=== PATIENT | male | born 1970 | race Caucasian/White ===

== ENCOUNTER 2017-05-27 20:19 | Inpatient (IN) ==
[2017-05-27] MEDS ORDERED: KETOROLAC 30 MG/1 ML VIAL IV STA (21:31)
[2017-05-27] MEDS ORDERED: PANTOPRAZOLE 40 MG VIAL IV STA (21:31)
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
[2017-05-27] MEDS ORDERED: PANTOPRAZOLE 40 MG VIAL IV ONE (21:43)
[2017-05-27] MEDS ORDERED: KETOROLAC 30 MG/1 ML VIAL ONE (21:43)
[2017-05-27 22:03] LABS: Basophils % 0.2 % (0.0-0.8); Hematocrit 41.7 VOL% (42.0-52.0); Hemoglobin 14.7 GM/DL (14.0-18.0); Immature Granulocytes % 0.4 %; Immature Granulocytes Absolute 0.05 #; Lymphocytes # 1.7 10*3/uL (1.4-4.0); Lymphocytes % 13.9 % (21.2-54.2); Mean Corpuscular HGB Conc 35.3 GM/DL (32-36); Mean Corpuscular Hemoglobin 32 PG (27-34); Mean Corpuscular Volume 90.7 FL (87-102); Mean Platelet Volume 8.6 FL (9.6-12.0); Monocytes # 1.1 10*3/uL (0.11-0.8); Monocytes % 9.5 % (1.7-12.7); Neutrophils # 9.2 10*3/uL (1.4-7.4); Platelet Count 308 T/CUMM (130-400); Red Cell Distribution Width 12.7 % (9.3-17.3)
[2017-05-27 22:21] LABS: Albumin 4.1 G/DL (3.4-5.0); Bilirubin,Total 1.4 MG/DL (0.2-1.0); Calcium 8.5 MG/DL (8.5-10.1); Osmolality,Calculated 267.4 MOS/KG (273-304); Total Protein 7.3 G/DL (6.4-8.3)
[2017-05-27] MEDS ORDERED: PROMETHAZINE 25 MG/1 ML VIAL IM PRN (23:34)
[2017-05-27] MEDS ORDERED: PROMETHAZINE 25 MG TABLET PO PRN (23:34)
[2017-05-27] MEDS ORDERED: DOCUSATE SODIUM 100 MG CAPSULE PO PRN (23:34)
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
[2017-05-28] MEDS: ONDANSETRON 4 MG/2 ML VIAL IV PRN ×3 (00:40→20:43)
[2017-05-28] MEDS: SODIUM CHLORIDE 0.9% 1,000 ML IV SCH ×3 (00:42→19:07)
[2017-05-28] MEDS: HYDROmorphone 2 MG/1 ML VIAL IV PRN ×6 (00:43→20:45)
[2017-05-28] MEDS: ENOXAPARIN 40 MG/0.4 ML SYRINGE SUBCUT SCH (00:44)
[2017-05-28 01:51] LABS: Risk Ratio 5.83; VLDL CHOLESTEROL 31.8 MG/DL
[2017-05-28] MEDS: AMITRIPTYLINE 100 MG TABLET PO SCH ×2 (03:26→20:43)
[2017-05-28 05:56] LABS: Basophils % 0.2 % (0.0-0.8); Eosinophils # 0.1 10*3/uL (0.0-0.87); Eosinophils % 0.8 % (0.00-10.9); Hematocrit 40.9 VOL% (42.0-52.0); Hemoglobin 14.2 GM/DL (14.0-18.0); Immature Granulocytes % 0.3 %; Immature Granulocytes Absolute 0.03 #; Lymphocytes % 20.6 % (21.2-54.2); Mean Corpuscular HGB Conc 34.7 GM/DL (32-36); Mean Corpuscular Hemoglobin 32 PG (27-34); Mean Corpuscular Volume 91.1 FL (87-102); Monocytes # 1.1 10*3/uL (0.11-0.8); Monocytes % 11.1 % (1.7-12.7); Neutrophils # 6.4 10*3/uL (1.4-7.4); Platelet Count 308 T/CUMM (130-400); Red Blood Count 4.49 MC/CUMM (3.8-5.5); Red Cell Distribution Width 12.8 % (9.3-17.3); White Blood Count 9.6 T/CUMM (4-12)
[2017-05-28 06:33] LABS: Albumin 3.8 G/DL (3.4-5.0); Calcium 8.6 MG/DL (8.5-10.1); Osmolality,Calculated 275.7 MOS/KG (273-304); Total Protein 6.8 G/DL (6.4-8.3)
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
[2017-05-28] MEDS: ATORVASTATIN 20 MG TABLET PO SCH (09:00)
[2017-05-28] MEDS: ALPRAZolam 0.5 MG TABLET PO SCH ×3 (09:00→20:43)
[2017-05-28] MEDS ORDERED: AMPHETAMINE PO SCH (09:00)
[2017-05-28] MEDS: ESCITALOPRAM 10 MG TABLET PO SCH (09:00)
[2017-05-28] MEDS ORDERED: DEXTROAMPHETAMINE PO SCH (09:00)
[2017-05-28] MEDS: PANTOPRAZOLE 40 MG VIAL IV SCH ×2 (09:49→20:44)
--- NOTE | 2017-05-28 10:16 | Ultrasound Report ---
US abdomen Indication: Abdominal pain. ULTRASOUND ABDOMEN, COMPLETE Comparison: 07/10/2007 Findings: Liver: Unremarkable Gallbladder: Surgically absent Common bile duct: 12 mm Aorta: No aneurysm IVC: Patent Spleen: Unremarkable Pancreas: Obscured by bowel gas Right kidney: 11.2 cm length. No mass, cyst, calcification or obstruction Left kidney: 12.1 cm length. No mass, cyst, calcification or obstruction Impression: Status post cholecystectomy. 12 mm common bile duct is dilated. No choledocholithiasis seen. Consider ERCP if obstructive pathology suggested with laboratory studies. PROCEDURE INTERPRETED AT [facility] DEPARTMENT OF RADIOLOGY Final Report Signed by: Abhay Guallpa M.D.
[2017-05-28 10:24] LABS: % Iron Saturation 49.7 % (18-50)
[2017-05-28] MEDS ORDERED: LORazepam 2 MG/1 ML VIAL ONE (10:25)
[2017-05-28] MEDS ORDERED: LORazepam 2 MG/1 ML VIAL IV ONE (10:28)
[2017-05-28] MEDS ORDERED: ZIPRASIDONE 20 MG/1 ML VIAL IM ONE (10:58)
[2017-05-28] MEDS ORDERED: HALOPERIDOL 5 MG/ML AMP IV PRN (11:04)
--- NOTE | 2017-05-28 11:15 | Hospitalist Progress Note ---
Assessment and Plan (1) Agitation Status: Acute Assessment and plan: Patient has an underlying psych issues. We will try some sedatives, psychotics and try and see if any psych facility can take him. Continue with F[facility] prn Current Visit: Yes (2) Pancreatitis, acute Status: Acute Assessment and plan: Lipase level has improved from 1414 to 400.Abd USS showed Status post cholecystectomy. 12 mm common bile duct is dilated. No choledocholithiasis seen. Plan Continue with IVF, IV pain meds and antiemetics. Follow GI's recommendations Current Visit: Yes Qualifiers: Pancreatitis type: unspecified pancreatitis type (3) Depression Status: Chronic Assessment and plan: continue home meds Current Visit: Yes (4) PTSD (post-traumatic stress disorder) Status: Chronic Current Visit: Yes (5) Nausea & vomiting Status: Acute Assessment and plan: Continue with IV fluids and IV antiemetics PRN. Current Visit: Yes Hospitalist: Subjective Interval history: Patient was crying and yelling like a baby this am. He was retching and trying to induce vomiting, at some point, he laid on the floor in a position stating he had pain in his abdomen barely few minutes after receiving zofran and morphine. came over and states patient sees a pyschiatrist in [place] and that his next appointment was on Tuesday. His also states that he gets himself worked up and starts to cry. His lipase has reduced greatly from 1414 to 400. GI has seen and they recmmended an USS which showed Status post cholecystectomy. 12 mm common bile duct is dilated. No choledocholithiasis seen. Exam - Constitutional Vitals: Period Temp Pulse Resp BP Sys/Molina Pulse Ox Last 24 Hr 97.2 F-97.4 F 68-85 18-20 111-144/76-112 93-100 General appearance: no acute distress, other (yelling and crying) - Head Head exam: Present: normal inspection - Respiratory Respiratory exam: Present: clear to auscultation bilaterally - Cardiovascular Cardiovascular exam: Present: regular rate and rhythm - GI/Abdominal GI/Abdominal exam: Present: normal bowel sounds - Extremities Exam Extremities exam: Present: normal inspection - Neurological Exam Neurological exam: Present: alert, oriented X3 Results - Labs CBC & BMP: 05/28/17 05:13 05/28/17 05:13 Lab Results: I have reviewed the past 24 hour labs Quality Measures - Stroke Symptom Onset Unknown: No
[2017-05-28 11:20] LABS: Hepatitis A Ab IgM Quant 0.46 Index; Hepatitis A Ab IgM Result Negative (Negative); Hepatitis B Core IgM Quant 0.05 Index; Hepatitis B Core IgM Result Negative (Negative); Hepatitis B Surface Ag Quant < 0.10 Index; Hepatitis B Surface Ag Result Negative (Negative); Hepatitis C Virus Ab Quant 0.03 Index; Hepatitis C Virus Ab Result Negative (Negative)
[2017-05-28] MEDS ORDERED: PROMETHAZINE 25 MG/1 ML VIAL IM PRN (11:22)
--- NOTE | 2017-05-28 12:16 | XRay Report ---
XR shoulder 2V RT Indication: Right shoulder pain. Right shoulder 2 views: No fracture or dislocation identified. Soft tissues are unremarkable. Small subchondral cyst of the humeral head noted. Impression: Negative shoulder, except for a small subchondral cyst of humeral head indicating early arthritic change. PROCEDURE INTERPRETED AT [facility] DEPARTMENT OF RADIOLOGY Final Report Signed by: Abhay Guallpa M.D.
[2017-05-28] MEDS ORDERED: ENOXAPARIN 40 MG/0.4 ML SYRINGE SUBCUT SCH (13:00)
[2017-05-29] MEDS: ENOXAPARIN 40 MG/0.4 ML SYRINGE SUBCUT SCH (01:11)
[2017-05-29] MEDS: HYDROmorphone 2 MG/1 ML VIAL IV PRN ×2 (04:43→09:08)
[2017-05-29] MEDS: SODIUM CHLORIDE 0.9% 1,000 ML IV SCH ×2 (04:44→09:09)
[2017-05-29 05:43] LABS: Basophils % 0.3 % (0.0-0.8); Eosinophils # 0.1 10*3/uL (0.0-0.87); Eosinophils % 1.3 % (0.00-10.9); Hematocrit 37.4 VOL% (42.0-52.0); Hemoglobin 12.8 GM/DL (14.0-18.0); Immature Granulocytes % 0.3 %; Immature Granulocytes Absolute 0.02 #; Lymphocytes # 1.5 10*3/uL (1.4-4.0); Lymphocytes % 21.1 % (21.2-54.2); Mean Corpuscular HGB Conc 34.2 GM/DL (32-36); Mean Corpuscular Hemoglobin 31 PG (27-34); Mean Corpuscular Volume 91.9 FL (87-102); Monocytes # 0.6 10*3/uL (0.11-0.8); Monocytes % 8.7 % (1.7-12.7); Neutrophils # 4.9 10*3/uL (1.4-7.4); Neutrophils % 68.3 % (38.7-73.9); Platelet Count 282 T/CUMM (130-400); Red Blood Count 4.07 MC/CUMM (3.8-5.5); Red Cell Distribution Width 12.4 % (9.3-17.3); White Blood Count 7.1 T/CUMM (4-12)
[2017-05-29 06:16] LABS: Albumin 3.4 G/DL (3.4-5.0); Bilirubin,Direct 0.2 MG/DL (0.0-0.20); Bilirubin,Indirect 1.3 MG/DL (0.0-1.0); Bilirubin,Total 1.5 MG/DL (0.2-1.0)
[2017-05-29 06:24] LABS: Albumin 3.4 G/DL (3.4-5.0); Bilirubin,Total 1.3 MG/DL (0.2-1.0); Calcium 8.1 MG/DL (8.5-10.1); Osmolality,Calculated 277.4 MOS/KG (273-304); Potassium 3.9 MMOL/L (3.5-5.1)
--- NOTE | 2017-05-29 06:40 | Gastrointestinal Progress Note ---
Assessment and Plan (1) Pancreatitis, acute Status: Acute Assessment and plan: The patient does have some pancreatitis which has now biochemically reversed itself almost into the normal range. He is gotten regular amounts of fluid instead of high fluid bolus but feels better at this point so I am not going to increase his IV rate. His pain previously was 8 out of 10 and now has gone down to a 0 out of 10. We will cut back on his Dilaudid. I think it is a good idea to get the ultrasound. I am not sure what caused the pancreatitis but possibilities include surreptitious use of alcohol which may have worn off prior to the urine drug screen being done, drug-induced from the opiates, microlithiasis left over in the common bile duct post ERCP bilirubin stones that may have "colonized" the patent common bile duct, versus sphincter of Oddi dysfunction. I am not sure it makes much of a difference since his symptoms are improved. The ultrasound should show if there is ductal dilatation which would not be surprising post cholecystectomy to a degree. If there is wide dilation and the patient develops a second episode, ERCP versus MRCP may be indicated in order to cut the duct and dredge it which would eliminate retained common bile duct stones and sphincter of Oddi dysfunction. I do not do ERCP and so this would be a service provided by different tool maker bench. Will await ultrasound and get another lipase level tomorrow if these are both normal he could certainly be discharged in my opinion. 05/29/17-- White blood cell count is now down to 7.1, with a total bilirubin 1.3 indirect is 1.3 indicating that this is probably a Gilbert's syndrome. Patient's AST is now down to 55 with an ALT of 92 and negative viral parameters hepatitis parameters. I do not believe this was stone disease despite the dilated common bile duct which is common postcholecystectomy. He is likely a surreptitious drinker who developed some pancreatitis. When the patient returns to clinic next time the hospital with his next pancreatitis we need to check alcohol in addition to urine drug screen. If he remains dilated at that time he may need a MRCP versus ERCP as well. Please recall I do not do ERCP. he is safe for release at this time on a low-fat diet. We will advance his diet this morning thank you for this most interesting case, I will be signing off at this time Current Visit: Yes Qualifiers: Pancreatitis type: unspecified pancreatitis type (2) Nausea & vomiting Status: Acute Assessment and plan: Patient states that he has reflux and occasional epigastric pain with black stools although I am not seeing any blood in his stools. It is advisable to keep the patient on proton pump inhibition while he is here and he might benefit from a prescription for Protonix upon leaving the hospital. His hematocrit remains normal. 05/29/17--apparently there was some hub-gato with the patient last night, but he seems fine now. He can be released to home at this time. I will write for him to have a follow-up appointment in 6 weeks. Current Visit: Yes (3) Abnormal liver function tests Status: Acute Assessment and plan: The differential on the use is wide and include: Biliary obstruction, drug- induced liver injury, alcoholism, viral hepatitis, hemochromatosis/alpha-1 antitrypsin deficiency/autoimmune hepatitis (which we will not be excluding yet) , and Gilbert's syndrome specifically for the bilirubin elevation. Ultrasound is pending, and we are following these liver function tests over time. They appear to be improving already. His primary care provider will need to follow these over time to see if they normalize, there is not much to do about the medications he is taking for his psychiatric illness that might be damaging his liver. Ultimately he might benefit from a liver biopsy to distinguish etiologies. 05/29/17--patient has a slightly dilated common bile duct which may be secondary to passed stones versus left over from his cholecystectomy, LFTs are decreasing slowly and his lipase level is completely normal now. He he can be discharged at this time. Current Visit: Yes Gastroenterology - PN: Subj Interval history: Patient is interactive this morning and calm told me that his pain was down to a 1 out of 10 in intensity and that he is hungry for something more solid. Will advance his diet to a low-fat diet and he can certainly be discharged today. His numbers look essentially back to normal again and his ultrasound shows no ductal obstruction a 12 mm common bile duct but since his LFTs continue to improve, with a lipase level that is in the normal range now. Exam (Progress Note) - Constitutional Vitals: Period Temp Pulse Resp BP Sys/Molina Pulse Ox Last 24 Hr 97.5 F-98.5 F 59-93 16-20 123-142/75-93 92-96 General appearance: no acute distress - Eye Eye exam: Present: EOMI Pupils: Present: BEATRICE - Respiratory Respiratory exam: Present: clear to auscultation bilaterally - Cardiovascular Cardiovascular exam: Present: regular rate and rhythm - GI/Abdominal GI/Abdominal exam: Present: normal bowel sounds, soft. Absent: distended, tenderness, rebound - Back Exam Back exam: Present: normal inspection - Neurological Exam Neurological exam: Present: alert, oriented X3, CN II-XII intact - Psychiatric Psychiatric exam: Present: normal affect, normal mood - Skin Skin exam: Present: warm Results - Labs CBC & BMP: 05/29/17 05:15 05/29/17 05:15
--- NOTE | 2017-05-29 08:23 | Discharge Summary ---
<Ovidio Panchal - Last Filed: 05/29/17 08:44> Hospital Course - Hospital Course Hospital Course: Mr. Arechiga is a 47 year old male that presented to the ED on 05/27/2017, accompanied by his [id number] and daughter, with complaints of abdominal pain that started some time earlier that day with associated nausea and vomiting. The patient was transferred from [facility] where he had a CT scan that showed absent gall bladder and no significant abnormalities of the pancreas. He reported abdominal pain to be severe and located in RUQ. Patient was admitted to the hospitalist service with acute pancreatitis with supportive therapy and consultation from GI. With IVF, IC pain meds and antiemetics, the patient's lipase level did improve from 1414 on admission to 400 by day 2. Abdominal US showed s/p cholecystectomy with a 12 mm common bile duct, however no stones were present. Upon GI evaluation, it was noted that the patient's total bilirubin was 1.3 and indirect was 1.3 indicating that the patient likely has Gilbert's Syndrome. The pancreatitis effect is likely due to surreptitious alcohol consumption. In the future, the patient may need a MRCP vs ERCP. At this time he is stable for discharge home on a low-fat diet. He should follow- up with [facility] as an outpatient in 6 weeks. In addition to the patient's pancreatitis, he does have significant psychiatric issues. During his stay, patient was crying and yelling like a baby yesterday morning. He was retching and trying to induce vomiting. At some point, he laid on the floor in a position stating he had pain in his abdomen barely few minutes after receiving zofran and morphine. came over and states patient sees a pyschiatrist in [place] and that his next appointment is on Tuesday.Hephzibah saw him in consultation and advised that he follows with his psychiatrist. We want to ensure the patient does not miss this appointment. Discharge orders and appropriate instructions to follow per Dr. Alvarenga. Vitals are stable, he will be discharged today. - Time spent with patient Time with patient DS: Greater than 30 minutes Discharge Plan - Discharge Data Disposition: Disch To Home/Self Care - Discharge Medications New Ondansetron Tab [Zofran Tab] 4 mg PO Q6H #20 tablet traMADol TAB [Ultram] 50 mg PO Q4H PRN #20 tablet PRN Reason: Abdominal Pain Atorvastatin [Lipitor] 20 mg PO DAILY #30 tablet Continue Escitalopram [Lexapro] 20 mg PO DAILY Dextroamphetamine/Amphetamine [Adderall 15 mg Tablet] 15 mg PO BID ALPRAZolam [Xanax] 2 mg PO TID #20 Amitriptyline [Elavil] 200 mg PO BEDTIME #20 - Follow Up or Referral - Forms/Instructions Exam - Constitutional Vitals: Period Temp Pulse Resp BP Sys/Molina Pulse Ox Last 24 Hr 96.5 F-98.5 F 84-93 16-20 128-142/84-93 92-98 Discharge Results Labs on day of discharge: Labs from last 24 hours 05/29/17 05/29/17 05/29/17 05:15 05:15 05:15 WBC 7.1 RBC 4.07 Hgb 12.8 L Hct 37.4 L MCV 91.9 MCH 31 MCHC 34.2 RDW 12.4 Plt Count 282 MPV 9.0 L Neut % (Auto) 68.3 Lymph % (Auto) 21.1 L [place] % (Auto) 8.7 Eos % (Auto) 1.3 Baso % (Auto) 0.3 Neut # (Auto) 4.9 Lymph # (Auto) 1.5 [place] # (Auto) 0.6 Eos # (Auto) 0.1 Baso # (Auto) 0.0 Immature Gran % 0.3 Nucleated RBC % 0.0 Immature Gran # 0.02 Nucleated RBCs # 0.00 Immature Plt Fraction 0.0 Sodium 140 Potassium 3.9 Chloride 107 Carbon Dioxide 25 Anion Gap 11.9 BUN 13 Creatinine 0.90 GFR Calculation 126 BUN/Creatinine Ratio 14.00 Glucose 86 Calculated Osmolality 277.4 Calcium 8.1 L Total Bilirubin 1.30 H 1.50 H Direct Bilirubin 0.20 Indirect Bilirubin 1.3 H AST 55 H 55 H ALT 92 H 93 H Alkaline Phosphatase 110 109 Total Protein 6.0 L 6.0 L Albumin 3.4 3.4 Globulin 2.6 Albumin/Globulin Ratio 1.3 Lipase 155.0 D DS: Provider Date of admission: 05/27/17 23:34 Primary care physician: . No PCP Attending physician on admission: Christophe Nichols MD Discharging clinician: Ovidio BUI Expected date of discharge: 05/29/17 <Vicky Alvarenga - Last Filed: 05/29/17 12:22> Hospital Course - Time spent with patient Time with patient DS: Greater than 30 minutes (Time spent 35mins) Diagnosis - Discharge Diagnosis (1) Agitation Status: Acute (2) Pancreatitis, acute Status: Acute (3) Depression Status: Chronic (4) PTSD (post-traumatic stress disorder) Status: Chronic (5) Nausea & vomiting Status: Acute Discharge Plan - Discharge Data Condition at Discharge: Stable Discharge Diet: advance to your usual diet Activity: resume usual activities as tolerated - Forms/Instructions Additional Discharge Instructions: Follow with PCP in 1week, Psychiatrist in am and GI as scheduled Exam - Constitutional General appearance: no acute distress - Head Head exam: Present: normal inspection - Respiratory Respiratory exam: Present: clear to auscultation bilaterally - Cardiovascular Cardiovascular exam: Present: regular rate and rhythm - GI/Abdominal GI/Abdominal exam: Present: normal bowel sounds - Extremities Exam Extremities exam: Present: normal inspection
[2017-05-29] MEDS: ATORVASTATIN 20 MG TABLET PO SCH (09:09)
[2017-05-29] MEDS: PANTOPRAZOLE 40 MG VIAL IV SCH (09:09)
[2017-05-29] MEDS: ESCITALOPRAM 10 MG TABLET PO SCH (09:09)
[2017-05-29] MEDS: ALPRAZolam 0.5 MG TABLET PO SCH (09:09)
[2017-05-29 11:08] VITALS: BP 140/88
== END 2017-05-29 13:15 | disposition home or self-care (01) | DRG 282 ==
LOC: EDUNIT# → EDBD → N.ED 20:19 → SUATTDRO 23:34 → N.EDINP 23:34 → N.5E 05-28 00:02
PROVIDERS: ADMIT Family Medicine; ATTEND Internal Medicine

== ENCOUNTER 2017-12-25 09:43 | Observation (INO) ==
[2017-12-25] MEDS ORDERED: ONDANSETRON 4 MG/2 ML VIAL IV STA ×2 (10:03→11:02)
[2017-12-25] MEDS ORDERED: HYDROmorphone 2 MG/1 ML VIAL IV STA (10:03)
[2017-12-25] MEDS ORDERED: SODIUM CHLORIDE 0.9% 1,000 ML IV STA (10:03)
[2017-12-25] MEDS ORDERED: ONDANSETRON 4 MG/2 ML VIAL ONE ×2 (10:15→11:04)
[2017-12-25] MEDS ORDERED: MORPHINE 2 MG/1 ML SYRINGE IV STA ×2 (10:26→11:02)
[2017-12-25 10:36] LABS: Basophils % 0.3 % (0.0-0.8); Eosinophils % 0.1 % (0.00-10.9); Hematocrit 45.6 VOL% (42.0-52.0); Hemoglobin 15.8 GM/DL (14.0-18.0); Immature Granulocytes % 0.6 %; Immature Granulocytes Absolute 0.08 #; Lymphocytes # 1.9 10*3/uL (1.4-4.0); Lymphocytes % 13.8 % (21.2-54.2); Mean Corpuscular HGB Conc 34.6 GM/DL (32-36); Mean Corpuscular Hemoglobin 31 PG (27-34); Mean Corpuscular Volume 90.3 FL (87-102); Mean Platelet Volume 8.9 FL (9.6-12.0); Monocytes # 0.9 10*3/uL (0.11-0.8); Monocytes % 6.3 % (1.7-12.7); Neutrophils # 10.8 10*3/uL (1.4-7.4); Neutrophils % 78.9 % (38.7-73.9); Platelet Count 398 T/CUMM (130-400); Red Blood Count 5.05 MC/CUMM (3.8-5.5); Red Cell Distribution Width 12.7 % (9.3-17.3); White Blood Count 13.7 T/CUMM (4-12)
[2017-12-25] MEDS ORDERED: MORPHINE 2 MG/1 ML SYRINGE ONE ×3 (10:36→11:04)
[2017-12-25] MEDS ORDERED: PROMETHAZINE 25 MG/1 ML VIAL IM STA (10:50)
[2017-12-25 10:58] LABS: Alanine Aminotransferase 23 U/L (16-61); Alkaline Phosphatase 92 U/L (45-117); Aspartate Amino Transferase 27 U/L (0-37); Blood Urea Nitrogen 14 MG/DL (7-18); Calcium 9.8 MG/DL (8.5-10.1); Glucose 117 MG/DL (74-106); Lactic Acid 2.9 MMOL/L (0.4-2.0); Osmolality,Calculated 271.1 MOS/KG (273-304); Potassium 3.8 MMOL/L (3.5-5.1); Sodium 135 MMOL/L (136-145); Total Protein 8.9 G/DL (6.4-8.3)
[2017-12-25] MEDS ORDERED: PROMETHAZINE 25 MG/1 ML VIAL ONE (11:32)
[2017-12-25 12:25] LABS: Apearance,Urine CLEAR (Clear); Bilirubin,Urine Negative (Negative); Blood, Urine Negative (Negative); Glucose,Urine (UA) 50 mg/dL (Negative); Ketones,Urine 5 mg/dL (Negative); Mucus,Urine Few /LPF (Occasional); Nitrite,Urine Negative (Negative); Protein,Urine Negative; RBC,Urine 1 /HPF (0-4); Urine Color Yellow (Yellow); Urine Specific Gravity > 1.060 (1.001-1.035); Urine Urobilinogen < 2.0 EU/DL (0.2-1.0); WBC,Urine <1 /HPF (0-6)
[2017-12-25 12:31] LABS: Barbiturates Screen,Urine Negative (Negative); Benzodiazepines Screen,Urine Positive (Negative); Cannabinoid Screen,Urine Positive (Negative); Opiate Screen,Urine Positive (Negative); Phencyclidine Screen,Urine Negative (Negative)
[2017-12-25] MEDS ORDERED: ACETAMINOPHEN 325 MG TABLET PO PRN (13:03)
[2017-12-25] MEDS: SODIUM CHLORIDE 0.9% 1,000 ML IV SCH (14:20)
[2017-12-25] MEDS ORDERED: HYDROmorphone 2 MG/1 ML VIAL IV PRN (14:22)
[2017-12-25] MEDS: ALPRAZolam 0.5 MG TABLET PO SCH ×2 (15:08→21:43)
[2017-12-25] MEDS: ONDANSETRON 4 MG/2 ML VIAL IV PRN ×2 (15:09→19:28)
[2017-12-25 15:32] LABS: Lactic Acid 3.4 MMOL/L (0.4-2.0)
[2017-12-25] MEDS ORDERED: hydrALAZINE 20 MG/1 ML VIAL IV PRN (16:05)
[2017-12-25] MEDS ORDERED: KETOROLAC 15 MG/1 ML VIAL IV PRN (16:42)
[2017-12-25] MEDS ORDERED: PROMETHAZINE 25 MG/1 ML VIAL IM PRN (20:50)
[2017-12-25] MEDS ORDERED: AMPHETAMINE PO SCH (21:00)
[2017-12-25] MEDS ORDERED: DEXTROAMPHETAMINE PO SCH (21:00)
[2017-12-25] MEDS: QUEtiapine 100 MG TABLET PO SCH (21:43)
[2017-12-25] MEDS: AMITRIPTYLINE 100 MG TABLET PO SCH (21:43)
[2017-12-26] MEDS: SODIUM CHLORIDE 0.9% 1,000 ML IV SCH ×2 (01:39→23:40)
[2017-12-26 05:50] LABS: Basophils % 0.2 % (0.0-0.8); Eosinophils % 0.1 % (0.00-10.9); Hematocrit 39.6 VOL% (42.0-52.0); Hemoglobin 14.2 GM/DL (14.0-18.0); Immature Granulocytes % 0.3 %; Immature Granulocytes Absolute 0.03 #; Lymphocytes % 16.9 % (21.2-54.2); Mean Corpuscular HGB Conc 35.9 GM/DL (32-36); Mean Corpuscular Hemoglobin 32 PG (27-34); Mean Platelet Volume 9.4 FL (9.6-12.0); Monocytes # 1.3 10*3/uL (0.11-0.8); Monocytes % 10.7 % (1.7-12.7); Neutrophils # 8.6 10*3/uL (1.4-7.4); Neutrophils % 71.8 % (38.7-73.9); Platelet Count 339 T/CUMM (130-400); Red Blood Count 4.45 MC/CUMM (3.8-5.5); Red Cell Distribution Width 13.1 % (9.3-17.3)
[2017-12-26 06:24] LABS: Albumin 4.1 G/DL (3.4-5.0); Bilirubin,Total 0.6 MG/DL (0.2-1.0); Calcium 8.8 MG/DL (8.5-10.1); Total Protein 7.4 G/DL (6.4-8.3)
[2017-12-26] MEDS: ALPRAZolam 0.5 MG TABLET PO SCH ×3 (08:51→21:30)
[2017-12-26] MEDS: ONDANSETRON 4 MG/2 ML VIAL IV PRN ×3 (09:53→21:26)
[2017-12-26] MEDS: QUEtiapine 100 MG TABLET PO SCH (21:30)
[2017-12-26] MEDS: KETOROLAC 15 MG/1 ML VIAL IV SCH (21:30)
[2017-12-26] MEDS: AMITRIPTYLINE 100 MG TABLET PO SCH (21:30)
[2017-12-27] MEDS: SODIUM CHLORIDE 0.9% 1,000 ML IV SCH (00:20)
[2017-12-27 05:34] LABS: Basophils % 0.3 % (0.0-0.8); Eosinophils # 0.1 10*3/uL (0.0-0.87); Eosinophils % 1.1 % (0.00-10.9); Hemoglobin 13.1 GM/DL (14.0-18.0); Immature Granulocytes % 0.3 %; Immature Granulocytes Absolute 0.02 #; Lymphocytes # 2.3 10*3/uL (1.4-4.0); Lymphocytes % 31.7 % (21.2-54.2); Mean Corpuscular HGB Conc 35.4 GM/DL (32-36); Mean Corpuscular Hemoglobin 32 PG (27-34); Mean Corpuscular Volume 90.2 FL (87-102); Mean Platelet Volume 8.9 FL (9.6-12.0); Monocytes # 0.7 10*3/uL (0.11-0.8); Monocytes % 9.1 % (1.7-12.7); Neutrophils # 4.2 10*3/uL (1.4-7.4); Neutrophils % 57.5 % (38.7-73.9); Platelet Count 286 T/CUMM (130-400); White Blood Count 7.3 T/CUMM (4-12)
[2017-12-27 06:09] LABS: Albumin 3.4 G/DL (3.4-5.0); Bilirubin,Total 0.9 MG/DL (0.2-1.0); Calcium 8.4 MG/DL (8.5-10.1); Osmolality,Calculated 278.4 MOS/KG (273-304); Potassium 4.3 MMOL/L (3.5-5.1)
[2017-12-27] MEDS: KETOROLAC 15 MG/1 ML VIAL IV SCH ×2 (06:20→14:55)
[2017-12-27] MEDS: ALPRAZolam 0.5 MG TABLET PO SCH ×2 (09:03→14:59)
[2017-12-27 11:40] VITALS: BP 144/94
== END 2017-12-27 15:20 | disposition home or self-care (01) ==
LOC: EDBD → EDUNIT# → N.ED 09:43 → N.EDINP 12:34 → INTOOBSV 12:34 → SUATTDRO 12:34 → N.EDINP 14:02 → N.3E 14:12
PROVIDERS: ADMIT Internal Medicine; ATTEND Internal Medicine

== ENCOUNTER 2018-10-05 10:42 | Inpatient (IN) ==
[2018-10-05] MEDS ORDERED: PANTOPRAZOLE 40 MG VIAL IV STA (11:12)
[2018-10-05] MEDS ORDERED: LORazepam 2 MG/1 ML VIAL IV STA (11:15)
[2018-10-05 11:42] LABS: Basophils # 0.1 10*3/uL (0.0-0.2); Basophils % 0.4 % (0.0-0.8); Immature Granulocytes % 0.5 %; Immature Granulocytes Absolute 0.09 #; Lymphocytes # 1.9 10*3/uL (1.4-4.0); Lymphocytes % 11.1 % (21.2-54.2); Mean Corpuscular HGB Conc 34.8 GM/DL (32-36); Mean Corpuscular Hemoglobin 31 PG (27-34); Mean Platelet Volume 8.5 FL (9.6-12.0); Monocytes # 1.3 10*3/uL (0.11-0.8); Monocytes % 7.8 % (1.7-12.7); Neutrophils # 13.7 10*3/uL (1.4-7.4); Neutrophils % 80.2 % (38.7-73.9); Platelet Count 487 T/CUMM (130-400); Red Blood Count 5.23 MC/CUMM (3.8-5.5); Red Cell Distribution Width 12.8 % (9.3-17.3); White Blood Count 17.1 T/CUMM (4-12)
[2018-10-05 12:03] LABS: Alanine Aminotransferase 49 U/L (16-61); Albumin 5.1 G/DL (3.4-5.0); Alkaline Phosphatase 158 U/L (45-117); Aspartate Amino Transferase 42 U/L (0-37); Blood Urea Nitrogen 15 MG/DL (7-18); Calcium 10.1 MG/DL (8.5-10.1); Glucose 136 MG/DL (74-106); Osmolality,Calculated 268.4 MOS/KG (273-304); Sodium 133 MMOL/L (136-145)
[2018-10-05 12:05] LABS: Lactic Acid 4.4 MMOL/L (0.4-2.0)
[2018-10-05] MEDS ORDERED: hydrALAZINE 20 MG/1 ML VIAL IV PRN (13:35)
[2018-10-05] MEDS: ONDANSETRON 4 MG/2 ML VIAL IV PRN ×2 (13:58→22:39)
[2018-10-05] MEDS: MORPHINE 4 MG/1 ML VIAL IV PRN ×3 (13:59→22:38)
[2018-10-05] MEDS: SODIUM CHLORIDE 0.9% 1,000 ML IV SCH (13:59)
[2018-10-05 16:58] LABS: Apearance,Urine Slightly Hazy (Clear); Bacteria,Urine Few /HPF (Few); Bilirubin,Urine Negative (Negative); Blood, Urine Negative (Negative); Glucose,Urine (UA) Negative (Negative); Ketones,Urine 20 mg/dL (Negative); Mucus,Urine Many /LPF (Occasional); Nitrite,Urine Negative (Negative); Protein,Urine 100 MG/DL; RBC,Urine 11 /HPF (0-4); Urine Specific Gravity 1.026 (1.001-1.035); Urine Urobilinogen < 2.0 EU/DL (0.2-1.0); WBC,Urine 2 /HPF (0-6)
[2018-10-05 16:59] LABS: Urine Color Yellow (Yellow)
[2018-10-05 17:01] LABS: Barbiturates Screen,Urine Negative (Negative); Benzodiazepines Screen,Urine Negative (Negative); Cannabinoid Screen,Urine Positive (Negative); Opiate Screen,Urine Positive (Negative); Phencyclidine Screen,Urine Negative (Negative)
[2018-10-05] MEDS: CIPROFLOXACIN INJ 400 MG in PREMIX 1 EACH IV SCH (17:35)
[2018-10-05] MEDS: metroNIDAZOLE INJ 500 MG in PREMIX 1 EACH IV SCH ×2 (18:05→22:38)
[2018-10-05] MEDS: LORazepam 2 MG/1 ML VIAL IV PRN (21:22)
[2018-10-05] MEDS: AMITRIPTYLINE 100 MG TABLET PO SCH (21:22)
[2018-10-06] MEDS: POTASSIUM CHLORIDE 20 MEQ TABLET PO PRN ×3 (01:03→05:35)
[2018-10-06] MEDS: SODIUM CHLORIDE 0.9% 1,000 ML IV SCH ×5 (01:04→23:09)
[2018-10-06] MEDS: CIPROFLOXACIN INJ 400 MG in PREMIX 1 EACH IV SCH ×2 (01:04→13:20)
[2018-10-06 05:10] LABS: Hematocrit 39.3 VOL% (42.0-52.0); Mean Corpuscular HGB Conc 34.6 GM/DL (32-36); Mean Corpuscular Hemoglobin 31 PG (27-34); Mean Corpuscular Volume 89.9 FL (87-102); Red Blood Count 4.37 MC/CUMM (3.8-5.5); Red Cell Distribution Width 12.9 % (9.3-17.3)
[2018-10-06 05:11] LABS: Basophils % 0.2 % (0.0-0.8); Eosinophils # 0.1 10*3/uL (0.0-0.87); Eosinophils % 0.6 % (0.00-10.9); Immature Granulocytes % 0.5 %; Immature Granulocytes Absolute 0.05 #; Lymphocytes % 18.7 % (21.2-54.2); Mean Platelet Volume 8.5 FL (9.6-12.0); Monocytes # 1.2 10*3/uL (0.11-0.8); Monocytes % 11.7 % (1.7-12.7); Neutrophils # 7.2 10*3/uL (1.4-7.4); Neutrophils % 68.3 % (38.7-73.9)
[2018-10-06 05:13] LABS: Hemoglobin 13.6 GM/DL (14.0-18.0); Platelet Count 350 T/CUMM (130-400); White Blood Count 10.5 T/CUMM (4-12)
[2018-10-06] MEDS: MORPHINE 4 MG/1 ML VIAL IV PRN ×5 (05:35→20:43)
[2018-10-06] MEDS: ONDANSETRON 4 MG/2 ML VIAL IV PRN ×3 (05:36→20:47)
[2018-10-06 05:39] LABS: Calcium 8.8 MG/DL (8.5-10.1); Potassium 3.4 MMOL/L (3.5-5.1)
[2018-10-06] MEDS: metroNIDAZOLE INJ 500 MG in PREMIX 1 EACH IV SCH ×3 (06:10→23:06)
[2018-10-06] MEDS: PANTOPRAZOLE 40 MG VIAL IV SCH (09:31)
[2018-10-06] MEDS ORDERED: POTASSIUM CHLORIDE RIDER 10 MEQ in PREMIX 1 EACH IV PRN (10:40)
[2018-10-06] MEDS: LORazepam 2 MG/1 ML VIAL IV PRN ×2 (10:45→15:20)
[2018-10-06] MEDS: AMITRIPTYLINE 100 MG TABLET PO SCH (20:42)
[2018-10-07] MEDS: MORPHINE 4 MG/1 ML VIAL IV PRN ×4 (00:22→12:11)
[2018-10-07] MEDS: CIPROFLOXACIN INJ 400 MG in PREMIX 1 EACH IV SCH ×2 (01:21→15:35)
[2018-10-07] MEDS: metroNIDAZOLE INJ 500 MG in PREMIX 1 EACH IV SCH ×2 (06:22→15:36)
[2018-10-07] MEDS: SODIUM CHLORIDE 0.9% 1,000 ML IV SCH ×3 (06:33→14:09)
[2018-10-07] MEDS: ONDANSETRON 4 MG/2 ML VIAL IV PRN (08:20)
[2018-10-07] MEDS: PANTOPRAZOLE 40 MG VIAL IV SCH (08:20)
[2018-10-07 13:43] VITALS: BP 142/100
[2018-10-07] MEDS: LORazepam 2 MG/1 ML VIAL IV PRN (14:35)
== END 2018-10-07 16:06 | disposition home or self-care (01) | DRG 776 ==
LOC: EDBD → EDUNIT# → N.ED 10:42 → N.EDINP 13:25 → N.5E 15:14
PROVIDERS: ADMIT Internal Medicine; ATTEND Internal Medicine